=== PATIENT | female | born 1995 | race Caucasian/White ===

== ENCOUNTER 2018-03-24 04:13 | Inpatient (IN) | payer MEDICAID ==
[2018-03-24] VITALS (12 sets, daily range): BP systolic 111–128; BP diastolic 57–81; PULSE 77–101; TEMP 97.9–98.8
[~2018-03-24] VITALS: Ht 167.6 cm; Wt 65.9 kg
[2018-03-24] MEDS ORDERED: PRENATAL MVI (05:37)
[2018-03-24] MEDS ORDERED: [UNRECOGNIZED DRUG - OTHER] (05:37)
[2018-03-24 07:24] LABS: BASO # 0.1 (0.0-0.2); BASO % 0.3 % (0.0-2.0); EOS # 0.1 (0.0-0.7); GRAN # 9.4 (1.4-6.5); GRAN % 64.8 % (42.2-75.2); HEMATOCRIT 30.2 % (37.0-47.0); HEMOGLOBIN 10.3 g/dl (12.5-16.0); LYMPH # 3.5 (1.2-3.4); LYMPH % 24.2 % (20.0-51.0); MEAN CELL VOLUME 94 fl (80.0-100.0); MEAN CORPUSCULAR HEMOGLOBIN 32 pg (27.0-31.0); MEAN CORPUSCULAR HGB CONC 34 g/dl (33.0-37.0); MEAN PLATELET VOLUME 10.9 fl (7.4-10.4); MONO # 1.3 (0.1-0.6); MONO % 8.8 % (1.7-9.3); PLATELET COUNT 361 K/mm3 (130-400); REDCELL DISTRIBUTION WIDTH-CV 14.3 % (11.5-14.5)
[2018-03-25] VITALS: BP 115/71; PULSE 87; TEMP 98.3
[2018-03-25 08:30] VITALS: BP 106/62; PULSE 81; TEMP 98.4
[2018-03-25 13:00] VITALS: BP 103/64; PULSE 68; TEMP 98.2
[2018-03-25 17:11] VITALS: BP 108/66; PULSE 77; TEMP 98.5
[2018-03-25 20:24] VITALS: BP 106/58; PULSE 78; TEMP 98.4
[2018-03-26 08:40] VITALS: BP 108/69; PULSE 73; TEMP 98
[2018-03-26] MEDS ORDERED: PERCOCET 325 MG1 TA2 PO (10:12)
[2018-03-26] MEDS ORDERED: IBU600 MG PO (10:12)
== END 2018-03-26 12:15 | disposition home or self-care (01) | DRG 775 ==
LOC: LDRO 04:13 → OB 04:53 → LDR 04:53 → OB 08:44
PROVIDERS: Obstetrics & Gynecology
PROC: 10E0XZZ Delivery of Products of Conception, External Approach (ICD-10-PCS; principal; 2018-03-24)
PROC: 0KQM0ZZ Repair Perineum Muscle, Open Approach (ICD-10-PCS; 2018-03-24)
PROC: 0UQMXZZ Repair Vulva, External Approach (ICD-10-PCS; 2018-03-24)
DX: O60.14X0 Preterm labor third trimester with preterm delivery third trimester, not applicable or unspecified (principal); Z3A.34 34 weeks gestation of pregnancy; Z37.0 Single live birth; O70.1 Second degree perineal laceration during delivery; O70.0 First degree perineal laceration during delivery
CPT/HCPCS: J0290; J2590; J7120